=== PATIENT | female | born 1970 | race Caucasian/White ===

== ENCOUNTER 2019-05-20 08:37 | Emergency (ER) | payer BC ==
[2019-05-20 09:02] VITALS: BP 112/70
--- NOTE | 2019-05-20 09:22 | UC ---
Dental HPI - HPI Summary HPI Summary: 48-year-old female presents to urgent care complaining of left upper dental pain. States she has been having intermittent pain with chewing for the past month over the last 3 days the pain has become more constant and severe. This morning she woke up and felt as if there was some mild swelling to the left side of her face and pain was no involving her left maxillary sinus. Has been taking [id number] ibuprofen and using a topical analgesic with some relief of the pain. She does not have a dental appointment scheduled at present. Denies fever, chills, drainage, dysphagia, or trismus. - History of Current Complaint Chief Complaint: UCGeneralIllness Stated Complaint: DENTAL COMPLAINT Time Seen by Provider: 05/20/19 09:01 Hx Obtained From: Patient Hx Last Menstrual Period: n/a Pain Intensity: 7 Dental: 1 - Dental tiarra. Mild gingival erythema without induration, fluctuance, or drainage. - Allergies/Home Medications Allergies/Adverse Reactions: Allergies Allergy/AdvReac Type Severity Reaction Status Date / Time No Known Allergies Allergy Verified 11/08/15 12:24 PMH/Surg Hx/FS Hx/Imm Hx Previously Healthy: Yes Psychological History: Depression - Surgical History Surgical History: Yes Surgery Procedure, Year, and Place: tubal - Family History Known Family History: Positive: Non-Contributory - Social History Occupation: Employed Full-time Lives: With Family Alcohol Use: None Substance Use Type: None Smoking Status (MU): Heavy Every Day Tobacco Smoker Type: Cigarettes Amount Used/How Often: 1 ppd Household Exposure Type: Cigarettes Review of Systems All Other Systems Reviewed And Are Negative: Yes Constitutional: Negative: Fever, Chills ENT: Positive: Dental Pain. Negative: Sore Throat, Nasal Discharge, Sinus Congestion Cardiovascular: Positive: Negative Gastrointestinal: Positive: Negative Genitourinary: Positive: Negative Musculoskeletal: Positive: Negative Neurological: Positive: Negative Is Patient Immunocompromised?: No Physical Exam - Summary Physical Exam Summary: GENERAL APPEARANCE: Well developed, well nourished, alert and cooperative, and appears to be in no acute distress. HEAD: Atraumatic. Normocephalic. No facial swelling. MOUTH/THROAT: Pharynx normal. No tonsilar inflammation, swelling, exudate, or lesions. Uvula midline. Overall poor dentition with multiple missing teeth and teeth in disrepair. There is a large dental tiarra noted to the 2nd left upper bicuspid with mild gingival erythema without induration, fluctuance, or discharge. NECK: Neck supple, non-tender without lymphadenopathy. CARDIAC: Normal S1 and S2. No S3, S4 or murmurs. Rhythm is regular. There is no peripheral edema, cyanosis or pallor. Extremities are warm and well perfused. Capillary refill is less than 2 seconds. Peripheral pulses intact. LUNGS: Clear to auscultation without rales, rhonchi, wheezing or diminished breath sounds. ABDOMEN: Positive bowel sounds. Soft, nondistended, nontender. No guarding or rebound. No masses or hepatosplenomegally. MUSKULOSKELETAL: ROM intact to all extremities. No joint erythema or tenderness. Normal muscular development. Normal gait. SKIN: Skin normal color, texture and turgor with no lesions or eruptions. Triage Information Reviewed: Yes Vital Signs: Initial Vital Signs Temp 97.4 F 05/20/19 08:58 Pulse 78 05/20/19 08:58 Resp 16 05/20/19 08:58 BP 112/70 05/20/19 08:58 Pulse Ox 99 05/20/19 08:58 Vital Signs Reviewed: Yes Dental Complaint Course/Dx - Course Course Of Treatment: 48-year-old female presents to urgent care complaining of left upper dental pain. States she has been having intermittent pain with chewing for the past month over the last 3 days the pain has become more constant and severe. This morning she woke up and felt as if there was some mild swelling to the left side of her face and pain was no involving her left maxillary sinus. Has been taking [id number]-hvnaxal ibuprofen and using a topical analgesic with some relief of the pain. She does not have a dental appointment scheduled at present. Denies fever, chills, drainage, dysphagia, or trismus. Afebrile. Vital signs stable. Patient had overall poor dentition with multiple missing teeth and teeth in disrepair. There was a large dental jose noted to the 2nd left upper bicuspid with mild gingival erythema without induration, fluctuance, or discharge. No trismus. Discussed with patient that her symptoms were likely from a dental infection and will plan to treat her with Augmentin 875 mg twice a day 10 days and have her continue with [id number] analgesics. She is to schedule a dental appointment at the next available. Anticipatory guidance warning symptoms were reviewed with the patient. Verbalizes understanding and agrees with plan of care. - Differential Dx/Diagnosis Differential Diagnosis/Dx: Dental Abscess, Dental Caries, Fractured Tooth, Odontogenic Pain, Peridontic Disease Provider Diagnosis: Pain, dental Discharge ED - Sign-Out/Discharge Documenting (check all that apply): Patient Departure All imaging exams completed and their final reports reviewed: No Studies - Discharge Plan Condition: Stable Disposition: HOME Prescriptions: Amoxicillin/Clavulanate TAB* [Augmentin TAB 875*] 875 mg PO BID 10 Days #20 tab Patient Education Materials: Toothache (ED) Referrals: No Primary Care Phys,NOPCP [Primary Care Provider] - Additional Instructions: Start Augmentin 875 mg 1 tab twice daily for 10 days. Ache with food to avoid upset stomach. Be sure to complete the entire course even feeling better. Take acetaminophen (Tylenol) or ibuprofen (Advil, Motrin) according to directions as needed for pain. Be sure to rinse your mouth out with a warm salt water solution after every time you eat to remove any debris. Make an appointment with your dentist at next available appointment. Seek immediate medical attention in the emergency room if you develop fever greater than 100.5 F, you are unable to open of close your mouth, are unable to swallow, have difficulty breathing, or any worsening of symptoms. - Billing Disposition and Condition Condition: STABLE Disposition: Home - Attestation Statements Provider Attestation: I was available for consult. This patient was seen by the GERMAN. The patient was not presented to , seen by or examined by -Vick Alicia MD
== END 2019-05-20 09:39 | disposition home or self-care (01) ==
LOC: UCCORT 08:37
DX: K08.89 Other specified disorders of teeth and supporting structures (principal); F17.210 Nicotine dependence, cigarettes, uncomplicated
CPT/HCPCS: 99202; G0463